=== PATIENT | male | born 1940 | race Caucasian/White ===

== ENCOUNTER 2018-08-02 03:44 | Emergency (ER) | payer MEDICARE, MEDICAID ==
[~2018-08-02] VITALS: Ht 177.8 cm; Wt 150.0 kg
[2018-08-02] MEDS ORDERED: SODIUM CHLORIDE FLUSH 10ML SYR IVF ONE (04:00)
[2018-08-02] MEDS ORDERED: PLEASE ENTER ALLERGIES MC SCH (04:00)
[2018-08-02] MEDS ORDERED: ONDANSETRON 2MG/ML, 2ML IVPush ONE (04:00)
[2018-08-02] MEDS ORDERED: MORPHINE SULFATE 4 MG/ML, 1ML ONE ×2 (04:00→05:46)
[2018-08-02] MEDS ORDERED: ONDANSETRON 2MG/ML, 2ML ONE (04:00)
--- NOTE | 2018-08-02 04:00 | NUR ---
[place] FROM HOME WOKE AT 0315 WITH ACHE RLQ ABD, DENIES NAUSEA OR VOMITING, OR INJURY. MONITORS APPLIED, SIDERAILS UP X2, CALL LIGHT WITHIN REACH.
--- NOTE | 2018-08-02 04:19 | NUR ---
PROVIDED PT WITH URINE CUP, PT STATED HE IS UNABLE TO VOID AT THIS TIME
[2018-08-02] MEDS ORDERED: RIVA20TA PO (04:29)
[2018-08-02] MEDS ORDERED: TRAZ-137 PO (04:29)
[2018-08-02] MEDS: MORPHINE SULFATE 4 MG/ML, 1ML IVPush PRN ×2 (04:40→05:48)
--- NOTE | 2018-08-02 04:49 | NUR ---
CT PENDING LAB/CREATINE.
[2018-08-02 05:07] LABS: BASOPHILS # (AUTO) 0.05 x10^3/uL (0-0.1); BASOPHILS % (AUTO) 0 % (0-1); EOSINOPHILS # (AUTO) 0.16 x10^3/uL (0-0.4); EOSINOPHILS % (AUTO) 1 % (1-7); LYMPHOCYTES # (AUTO) 2.06 x10^3/uL (1-3.4); LYMPHOCYTES % (AUTO) 16 % (22-44); MD NO; MEAN CORPUSCULAR HEMOGLOBIN 31.4 pg (27.5-34.5); MEAN CORPUSCULAR HGB CONC 34.4 g/dL (33.2-36.2); MEAN CORPUSCULAR VOLUME 91.3 fL (81-97); MEAN PLATELET VOLUME 10.8 fL (7.4-10.4); MONOCYTES # (AUTO) 0.99 x10^3/uL (0.2-0.8); MONOCYTES % (AUTO) 8 % (2-9); NEUTROPHILS # (AUTO) 9.32 x10^3/uL (1.8-6.8); NEUTROPHILS % (AUTO) 74 % (42-75); PLATELET COUNT 165 x10^3/uL (130-400); RED BLOOD COUNT 4.48 x10^6/uL (4.38-5.82); RED CELL DISTRIBUTION WIDTH 13.7 % (9.4-14.8)
[2018-08-02 05:09] LABS: ALANINE AMINOTRANSFERASE 27 U/L (12-78); ALBUMIN 3.6 g/dL (3.4-5.0); ANION GAP 6 mmol/L (5-15); CALCIUM 8.9 mg/dL (8.5-10.1); CHLORIDE 108 mmol/L (98-107); CREATININE 0.99 mg/dL (0.7-1.3)
[2018-08-02 05:11] LABS: ALKALINE PHOSPHATASE 93 U/L (45-117); BILIRUBIN,TOTAL 0.5 mg/dL (0.2-1.0); TOTAL PROTEIN 7.9 g/dL (6.4-8.2)
--- NOTE | 2018-08-02 05:15 | NUR ---
CT PENDING LAB/CREATINE.
--- NOTE | 2018-08-02 05:21 | NUR ---
URINE SAMPLE TAKEN TO LAB
--- NOTE | 2018-08-02 05:26 | NUR ---
PT TO CT
[2018-08-02] MEDS ORDERED: OMNIPAQUE 350 MG/ML, 100ML BOTTLE ONE (05:45)
--- NOTE | 2018-08-02 05:45 | NUR ---
PT RESTING ON GURNEY, MONITORS IN PLACE, CALL LIGHT WITHIN REACH. AWAITING CT RESULT
[2018-08-02 06:02] LABS: MICROSCOPIC NOT IND
[2018-08-02 06:09] LABS: CULTURE INDICATED? NO
--- NOTE | 2018-08-02 07:03 | NUR ---
ENEMA ADMINISTERED, PT TOLERATED WELL.
--- NOTE | 2018-08-02 07:04 | NUR ---
REPORT GIVEN TO CAMERON ANTONIO
--- NOTE | 2018-08-02 07:07 | NUR ---
PT RESTING ON GURNEY. ENEMA PLACED. PT RESTING ON GURNEY W/ TOWELS AND CHUCKS ON GURNEY.
--- NOTE | 2018-08-02 07:15 | NUR ---
ATTEMPTED TO CALL [facility] AND [facility] AT [phone] AND [phone]. NO ANSWER AT EITHER NUMBER. MESSAGE LEFT.
--- NOTE | 2018-08-02 07:38 | NUR ---
NO BM FROM FIRST ENEMA. SECOND ENEMA COMPLETED.
--- NOTE | 2018-08-02 07:58 | NUR ---
SPOKE W/ ERP DR. LANG ABOUT PT NOT BEING ABLE TO PROVIDE SUFFICIENT BM W/ 2ND ENEMA. PT PROVIDED ONE 1/2 INCH ROUNDED PELLET SIZED BM. PER ERP CALL PT FACILITY AND DISCUSS OPTIONS OF ASSISTED FACILITY BEING ABLE TO PROVIDE ENEMAS AT FACILITY.
--- NOTE | 2018-08-02 08:15 | NUR ---
SPOKE W/ DALTON FROM [facility] AT [phone] WHO STATES THEY FILL HIS RX IF STAFF PROVIDE PT W/ HARD COPY. THEY DO NOT PERFORM ENEMAS/SUPPOSITORIES. ERP NOTIFIED.
--- NOTE | 2018-08-02 08:17 | NUR ---
PER ERP PT OKAY TO DC W/ HARD COPY RX.
[2018-08-02 08:18] VITALS: BP 130/64
--- NOTE | 2018-08-02 08:20 | NUR ---
SPOKE W/ DIAMOND FROM [facility] AT [phone]. PER DIAMOND THEY DO NOT SET UP TRANSPORT. PT TO BE TRANSPORTED VIA [employer] [facility].
--- NOTE | 2018-08-02 08:44 | NUR ---
PT PROVIDED W/ DC PAPERWORK. PIV DC'D. PT RESTING ON EDDA. YANETH. CALL LIGHT IN REACH. AWARE OF DC TIME AT 1030.
--- NOTE | 2018-08-02 09:28 | NUR ---
PT RESTING ON GURNEY. LEE
== END 2018-08-02 10:44 | disposition home or self-care (01) ==
LOC: ED 04:18
DX: R10.31 Right lower quadrant pain (principal)
CPT/HCPCS: 36415; 74177; 80053; 81003; 83690; 85025; 96374; 96375; 96376; 99284; J2405; Q9967

== ENCOUNTER 2018-10-12 15:28 | Inpatient (IN) | payer MEDICARE, MEDICAID ==
[~2018-10-12] VITALS: Ht 177.8 cm; Wt 141.9 kg
[~2018-10-12 15:28] MED LIST: RIVA20TA PO; TRAZ-137 PO
--- NOTE | 2018-10-12 15:45 | NUR ---
Dr. Leiva at bedside to evaluate pt.
--- NOTE | 2018-10-12 15:48 | NUR ---
EDT at bedside for EKG.
--- NOTE | 2018-10-12 16:21 | NUR ---
Labs drawn, XR complete.
[2018-10-12 16:23] LABS: MEAN CORPUSCULAR HEMOGLOBIN 30.1 pg (27.5-34.5); MEAN CORPUSCULAR HGB CONC 32.5 g/dL (33.2-36.2); MEAN CORPUSCULAR VOLUME 92.7 fL (81-97); MEAN PLATELET VOLUME 9.6 fL (7.4-10.4); PLATELET COUNT 130 x10^3/uL (130-400); RED BLOOD COUNT 4.12 x10^6/uL (4.38-5.82); RED CELL DISTRIBUTION WIDTH 14.4 % (9.4-14.8)
[2018-10-12 16:33] LABS: ALANINE AMINOTRANSFERASE 20 U/L (12-78); ALBUMIN 3.1 g/dL (3.4-5.0); ANION GAP 8 mmol/L (5-15); CALCIUM 8.6 mg/dL (8.5-10.1); CHLORIDE 109 mmol/L (98-107); CREATININE 0.79 mg/dL (0.7-1.3)
[2018-10-12 16:36] LABS: ALKALINE PHOSPHATASE 76 U/L (45-117); BILIRUBIN,TOTAL 0.6 mg/dL (0.2-1.0); TOTAL PROTEIN 6.9 g/dL (6.4-8.2); TROPONIN I < 0.015 ng/mL (0.000-0.045)
--- NOTE | 2018-10-12 16:55 | NUR ---
Pt sitting on end of [facility], asking where his jacket is, pt re-assured that his jacket was not present when he arrived to ED, and that this RN will contact [facility] to see if jacket was left in ambulance.
--- NOTE | 2018-10-12 17:10 | NUR ---
Pt sitting at end of bed, all monitoring equipment removed by pt. Pt states that he was attempting to find his jacket. Pt assisted back to bed and monitoring equipment replaced. Pt made aware that we are awaiting lab results and then the MD will be back in to speak with him.
--- NOTE | 2018-10-12 17:12 | NUR ---
HEIDI called regarding pt's jacket. Shruti, at [facility], will call back with information.
[2018-10-12 17:22] LABS: BASOPHILS # (AUTO) 0.02 x10^3/uL (0-0.1); BASOPHILS % (AUTO) 0 % (0-1); EOSINOPHILS # (AUTO) 0.24 x10^3/uL (0-0.4); EOSINOPHILS % (AUTO) 2 % (1-7); LYMPHOCYTES # (AUTO) 0.65 x10^3/uL (1-3.4); LYMPHOCYTES % (AUTO) 5 % (22-44); MONOCYTES # (AUTO) 0.82 x10^3/uL (0.2-0.8); MONOCYTES % (AUTO) 6 % (2-9); NEUTROPHILS # (AUTO) 11.56 x10^3/uL (1.8-6.8); NEUTROPHILS % (AUTO) 87 % (42-75)
[2018-10-12 17:23] LABS: MD SCAN
--- NOTE | 2018-10-12 17:28 | NUR ---
[employer] student at bedside, with this RN, for IV start. Pt made aware of plan for CTA. Pt also made aware that [facility] dispatch contacted the crew that transported him and he did not have a jacket on when they responded to him.
--- NOTE | 2018-10-12 18:32 | NUR ---
Pt back in room after CTA. Pt c/o being hungry, denies CP. Pt advised that after the results of the CTA are back, food can be addressed. Pt verbalizes understanding.
[2018-10-12] MEDS ORDERED: FUROSEMIDE 40 MG/4 ML IV ONE (21:00)
[2018-10-12] MEDS ORDERED: TRAZODONE 100MG TABLET PO SCH (21:00)
[2018-10-12] MEDS ORDERED: BISACODYL 10 MG SUPP PR PRN (21:00)
[2018-10-12] MEDS ORDERED: ACETAMINOPHEN 325 MG TABLET PO PRN (21:00)
[2018-10-12] MEDS ORDERED: POLYETHYLENE GLYCOL 17 GM PACKET PO PRN (21:00)
[2018-10-12] MEDS ORDERED: NITROGLYCERIN 0.4 MG BOTTLE (25 TABS) SL PRN (21:00)
[2018-10-12] MEDS ORDERED: morphine SULFATE 10 MG/ML, 1ML IVPush PRN (21:00)
[2018-10-12] MEDS ORDERED: HEPARIN 5,000 UNITS/ML, 1ML SQ SCH (21:00)
[2018-10-12] MEDS ORDERED: ONDANSETRON ODT 4 MG PO PRN (21:00)
[2018-10-12] MEDS ORDERED: RIVAROXABAN 20 MG TABLET PO SCH (21:00)
--- NOTE | 2018-10-12 21:22 | NUR ---
Attempt made to do full med rec, by calling [facility]. No answer at that facility.
[2018-10-12] MEDS ORDERED: risperidone PO (21:23)
[2018-10-12] MEDS ORDERED: tamsulosin PO (21:23)
--- NOTE | 2018-10-12 21:25 | NUR ---
Telephone SBAR report given to RNSelene. Pt made aware of new room assigment.
[2018-10-12 22:13] LABS: TROPONIN I < 0.015 ng/mL (0.000-0.045)
[2018-10-12 22:15] VITALS: BP 149/80
[2018-10-12] MEDS: SODIUM CHLORIDE FLUSH 10ML SYR IVF SCH (22:17)
[2018-10-12 22:43] LABS: MICROSCOPIC NOT IND
[2018-10-12 22:47] VITALS: BP 149/80
[2018-10-12 22:47] LABS: CULTURE INDICATED? NO
[2018-10-13 01:10] VITALS: BP 125/76
[2018-10-13] MEDS ORDERED: OMNIPAQUE 350 MG/ML, 100ML BOTTLE ONE (03:13)
[2018-10-13 04:50] LABS: BASOPHILS # (AUTO) 0.03 x10^3/uL (0-0.1); BASOPHILS % (AUTO) 0 % (0-1); EOSINOPHILS % (AUTO) 2 % (1-7); LYMPHOCYTES # (AUTO) 0.92 x10^3/uL (1-3.4); LYMPHOCYTES % (AUTO) 9 % (22-44); MD NO; MEAN CORPUSCULAR HEMOGLOBIN 30.9 pg (27.5-34.5); MEAN CORPUSCULAR HGB CONC 33.5 g/dL (33.2-36.2); MEAN CORPUSCULAR VOLUME 92.4 fL (81-97); MEAN PLATELET VOLUME 10.5 fL (7.4-10.4); MONOCYTES # (AUTO) 1.11 x10^3/uL (0.2-0.8); MONOCYTES % (AUTO) 10 % (2-9); NEUTROPHILS # (AUTO) 8.64 x10^3/uL (1.8-6.8); NEUTROPHILS % (AUTO) 79 % (42-75); PLATELET COUNT 136 x10^3/uL (130-400); RED BLOOD COUNT 4.29 x10^6/uL (4.38-5.82); RED CELL DISTRIBUTION WIDTH 14.3 % (9.4-14.8)
[2018-10-13 05:02] LABS: CHLORIDE 107 mmol/L (98-107)
[2018-10-13 05:12] LABS: ALANINE AMINOTRANSFERASE 15 U/L (12-78); ALBUMIN 3.1 g/dL (3.4-5.0); ALKALINE PHOSPHATASE 71 U/L (45-117); ANION GAP 10 mmol/L (5-15); BILIRUBIN,TOTAL 0.9 mg/dL (0.2-1.0); CALCIUM 8.7 mg/dL (8.5-10.1); CHOL/HDL RATIO 2.6; CHOLESTEROL, TOTAL 109 mg/dL (140-239); CREATININE 0.81 mg/dL (0.7-1.3); HDL CHOL % 39 % (26-37); HDL CHOLESTEROL (DIRECT) 42 mg/dL (40-60); LDL CHOLESTEROL,CALCULATED 53 mg/dL (54-169); LDL/HDL RATIO 1.3 (0.5-3.0); TOTAL PROTEIN 7.2 g/dL (6.4-8.2); TRIGLYCERIDES 71 mg/dL (50-200); TROPONIN I < 0.015 ng/mL (0.000-0.045); VLDL CHOLESTEROL 14 mg/dL (0-25)
[2018-10-13 05:18] VITALS: BP 117/78
[2018-10-13] MEDS ORDERED: CARVEDILOL 3.125 MG TABLET PO SCH (06:00)
[2018-10-13] MEDS ORDERED: FUROSEMIDE 20 MG/2 ML IV SCH (07:30)
[2018-10-13] MEDS ORDERED: POTASSIUM CHLORIDE 20 MEQ TAB.ER.PRT PO SCH (08:00)
[2018-10-13] MEDS ORDERED: REGADENOSON 0.4 MG/5 ML SYRINGE ONE (08:09)
[2018-10-13 08:44] VITALS: BP 120/74
[2018-10-13] MEDS ORDERED: KETOROLAC 30 MG/1 ML ONE (08:44)
[2018-10-13] MEDS: SODIUM CHLORIDE FLUSH 10ML SYR IVF SCH (08:54)
[2018-10-13] MEDS ORDERED: DOCUSATE 100 MG CAPSULE PO SCH (09:00)
[2018-10-13] MEDS ORDERED: LISINOPRIL 5 MG TABLET PO SCH (09:00)
[2018-10-13] MEDS ORDERED: SENNA/DOCUSATE TABLET PO SCH (09:00)
[2018-10-13] MEDS ORDERED: KETOROLAC 30 MG/1 ML IVPush ONE (09:00)
[2018-10-13 14:19] VITALS: BP 125/79
[2018-10-13] MEDS ORDERED: CARV3.1212 PO (14:24)
[2018-10-13] MEDS ORDERED: FURO-93 PO (14:24)
== END 2018-10-13 16:21 | disposition home or self-care (01) | DRG 205 ==
LOC: ED 19:26 → EDIP 21:00 → 5SO 21:53
PROVIDERS: ADMIT Family Medicine; ATTEND Family Medicine
PROC: 0T9B70Z Drainage of Bladder with Drainage Device, Via Natural or Artificial Opening (ICD-10-PCS; principal; 2018-10-12)
DX: M94.0 Chondrocostal junction syndrome [Tietze] (principal); I50.33 Acute on chronic diastolic (congestive) heart failure; Z68.41 Body mass index [BMI] 40.0-44.9, adult; D68.69 Other thrombophilia; I11.0 Hypertensive heart disease with heart failure; I48.2 Chronic atrial fibrillation; G47.00 Insomnia, unspecified; D64.9 Anemia, unspecified; D72.829 Elevated white blood cell count, unspecified; E78.5 Hyperlipidemia, unspecified; Z66 Do not resuscitate; E66.9 Obesity, unspecified; I25.2 Old myocardial infarction; Z79.01 Long term (current) use of anticoagulants
CPT/HCPCS: 36415; 71045; 71275; 78452; 80053; 80061; 81003; 83880; 84484; 85025; 93005; 93017; 93306; 99285; G0378; J1644; J1885; J1940; J2785; Q9967; A9502; C9898; J2270

== ENCOUNTER 2018-10-19 12:37 | Emergency (ER) | payer MEDICARE, MEDICAID ==
[~2018-10-19] VITALS: Ht 180.3 cm; Wt 150.0 kg
[~2018-10-19 12:37] MED LIST changes: +CARV3.1212 PO; +FURO-93 PO; +risperidone PO; +tamsulosin PO
--- NOTE | 2018-10-19 12:53 | NUR ---
PATIENT [place] FROM [facility] FOR BLOOD IN STOOL AND LOWER ABD PAIN, LAST BM 3-4 DAYS. DENIES N/V/D. HX RECTAL FISSURE. + LIBRADO, LAB AT BEDSIDE, CALL LIGHT WITHIN REACH.
[2018-10-19 13:06] LABS: MEAN CORPUSCULAR HEMOGLOBIN 29.5 pg (27.5-34.5); MEAN CORPUSCULAR HGB CONC 31.8 g/dL (33.2-36.2); MEAN CORPUSCULAR VOLUME 92.8 fL (81-97); MEAN PLATELET VOLUME 9.5 fL (7.4-10.4); PLATELET COUNT 193 x10^3/uL (130-400); RED BLOOD COUNT 4.79 x10^6/uL (4.38-5.82); RED CELL DISTRIBUTION WIDTH 13.9 % (9.4-14.8)
[2018-10-19 13:14] LABS: ALBUMIN 3.5 g/dL (3.4-5.0); ANION GAP 7 mmol/L (5-15); CALCIUM 8.8 mg/dL (8.5-10.1); CHLORIDE 107 mmol/L (98-107); CREATININE 0.85 mg/dL (0.7-1.3); INTERNATIONAL NORMALIZED RATIO 1.15 (0.93-1.1)
--- NOTE | 2018-10-19 13:14 | NUR ---
PATIENT IN XRAY.
[2018-10-19] MEDS ORDERED: ATOR-2 PO (13:16)
[2018-10-19] MEDS ORDERED: ESCI10TA PO (13:17)
[2018-10-19] MEDS ORDERED: LISI2.5T PO (13:18)
[2018-10-19] MEDS ORDERED: MELA3TAB2 PO (13:19)
[2018-10-19] MEDS ORDERED: OMEP10CA4 PO (13:20)
[2018-10-19] MEDS ORDERED: MEMA10TA PO (13:20)
[2018-10-19] MEDS ORDERED: POLY17PO29 PO-COUM (13:21)
[2018-10-19] MEDS ORDERED: GLYC1SUP71 RC (13:22)
[2018-10-19] MEDS ORDERED: RISP1TAB3 PO (13:23)
[2018-10-19] MEDS ORDERED: TAMS-11 PO (13:23)
[2018-10-19 13:24] LABS: BASOPHILS # (AUTO) 0.05 x10^3/uL (0-0.1); BASOPHILS % (AUTO) 0 % (0-1); EOSINOPHILS # (AUTO) 0.37 x10^3/uL (0-0.4); EOSINOPHILS % (AUTO) 2 % (1-7); LYMPHOCYTES # (AUTO) 0.99 x10^3/uL (1-3.4); LYMPHOCYTES % (AUTO) 6 % (22-44); MD SCAN; MONOCYTES # (AUTO) 0.72 x10^3/uL (0.2-0.8); MONOCYTES % (AUTO) 4 % (2-9); NEUTROPHILS # (AUTO) 14.97 x10^3/uL (1.8-6.8); NEUTROPHILS % (AUTO) 88 % (42-75)
[2018-10-19] MEDS ORDERED: CARV3.122 PO (13:24)
[2018-10-19] MEDS ORDERED: MAGNESIUM CITRATE 300ML ORAL SOL ONE (13:59)
[2018-10-19] MEDS ORDERED: MAGNESIUM CITRATE 300ML ORAL SOL PO ONE (14:00)
[2018-10-19] MEDS ORDERED: SODIUM CHLORIDE FLUSH 10ML SYR IVF ONE (14:00)
--- NOTE | 2018-10-19 14:01 | NUR ---
NEW ORDERS, MAG [employer] ADMINISTERED PER ORDER, PATIENT SITTING IN RSPURGER DRINKING MEDICATION. VS UPDATED IN CHART, NADN. NO ADDITIONAL NEEDS AT THIS TIME.
--- NOTE | 2018-10-19 14:51 | NUR ---
PATIENT HAD LARGE LIGHT BROWN BM WITH BLOOD, PATIENT REPORTS HAVING ANAL FISSURE AND BLOOD IS NORMAL FOR PATIENT. PATIENT HAS SMALL WOUND TO BUTTOCKS REGISTER CLERK, [employer] APPLIED, INTERVIEWING CLERK NOTIFIED FOR WOUND CONSULT FOLLOW UP AT [facility], SW AT PATIENT BEDSIDE. THROUGHPUT NOTIFIED PATIENT IS DC'D AND MEDICALLY CLEARED BACK TO [facility], AWAITING TRANSPORT.
[2018-10-19 15:22] VITALS: BP 157/87
--- NOTE | 2018-10-19 15:22 | NUR ---
TASK RN NOTE: REPORT RECEIVED FROM PRIMARY RN MONICA. DC ORDERS RECEIVED FROM PROVIDER, THIS RN DISCUSSED ELEVATED WBC COUNT WITH ELDON MAURICE WHO IS AWARE AND STATES NO FURTHER WORKUP IS NECESSARY AT THIS TIME. PT DOES NOT HAVE PIV AT TIME OF DC. PT IS A&O, RESPS EVEN AND UNLABORED. NO BLEEDING NOTED AT TIME OF DC. PT GIVEN DC INSTRUCTIONS. PT ASSISTED INTO WC (THIS IS PT'S BASELINE MOBILITY) AND WHEELED TO DC DESK, PT GIVEN CAB VOUCHER FOR CAB RIDE TO [facility]IV[facility]. PER EVIN SILVERMAN, PT'S ASSISTED LIVING FACILITY IS AWARE OF PT'S PLAN TO RETURN HOME AND STAFF ARE AWAITING HIS ARRIVAL.
== END 2018-10-19 15:27 | disposition home or self-care (01) ==
LOC: ED 13:00
DX: K59.00 Constipation, unspecified (principal); D72.829 Elevated white blood cell count, unspecified; K60.1 Chronic anal fissure; K62.5 Hemorrhage of anus and rectum; L89.312 Pressure ulcer of right buttock, stage 2; I25.2 Old myocardial infarction; I10 Essential (primary) hypertension; F32.9 Major depressive disorder, single episode, unspecified; E78.00 Pure hypercholesterolemia, unspecified; I48.91 Unspecified atrial fibrillation; Z88.0 Allergy status to penicillin; Z88.2 Allergy status to sulfonamides
CPT/HCPCS: 36415; 74021; 80048; 82040; 85025; 85610; 85730; 99284

== ENCOUNTER 2018-11-27 11:46 | Inpatient (IN) | payer MEDICARE, MEDICAID ==
[~2018-11-27] VITALS: Ht 177.8 cm; Wt 148.1 kg
[~2018-11-27 11:46] MED LIST changes: +ATOR-2 PO; +CARV3.122 PO; +ESCI10TA PO; +GLYC1SUP71 RC; +LISI2.5T PO; +MELA3TAB2 PO; +MEMA10TA PO; +OMEP10CA4 PO; +POLY17PO29 PO-COUM; +RISP1TAB3 PO; +TAMS-11 PO
--- NOTE | 2018-11-27 11:50 | NUR ---
PT PRESENTING TO ER FROM [facility] VIA [facility] FOR DIZZINESS WITH STANDING THIS MORNING. IV IN PLACE ON ARRIVAL, 650ML NS GIVEN. PT A&0X4, NO C/O PAIN OR DISCOMFORT. CONNECTED TO ALL MONITORING, HYPOTENSIVE, OTHER VSS. EKG COMPLETE. MD TO BEDSIDE FOR ASSESSMENT. AWAITING ORDERS AT THIS TIME. CALL LIGHT WITHIN REACH
[2018-11-27] MEDS ORDERED: RISP1TAB3 PO (11:59)
[2018-11-27] MEDS ORDERED: ATOR10TA9 PO (11:59)
--- NOTE | 2018-11-27 11:59 | NUR ---
RAD COMPLETED. FLUIDS RUNNING PER JUL. PT UPDATE WITH NEED FOR URINE SAMPLE, URINAL PROVIDED
[2018-11-27] MEDS ORDERED: SODIUM CHLORIDE 0.9% 1,000ML IVBOLUS ONE (12:00)
[2018-11-27 12:17] LABS: MEAN CORPUSCULAR HEMOGLOBIN 30.8 pg (27.5-34.5); MEAN CORPUSCULAR HGB CONC 33.3 g/dL (33.2-36.2); MEAN CORPUSCULAR VOLUME 92.5 fL (81-97); MEAN PLATELET VOLUME 9.7 fL (7.4-10.4); PLATELET COUNT 156 x10^3/uL (130-400); RED BLOOD COUNT 4.44 x10^6/uL (4.38-5.82); RED CELL DISTRIBUTION WIDTH 14.2 % (9.4-14.8)
[2018-11-27 12:26] LABS: ALANINE AMINOTRANSFERASE 14 U/L (12-78); ALBUMIN 2.9 g/dL (3.4-5.0); ANION GAP 7 mmol/L (5-15); CALCIUM 8.3 mg/dL (8.5-10.1); CHLORIDE 107 mmol/L (98-107); CREATININE 1.09 mg/dL (0.7-1.3); INTERNATIONAL NORMALIZED RATIO 1.35 (0.93-1.1)
[2018-11-27 12:31] LABS: ALKALINE PHOSPHATASE 75 U/L (45-117); BILIRUBIN,TOTAL 0.9 mg/dL (0.2-1.0); TOTAL PROTEIN 6.7 g/dL (6.4-8.2); TROPONIN I < 0.015 ng/mL (0.000-0.045)
--- NOTE | 2018-11-27 12:35 | NUR ---
LAB AT BEDSIDE FOR BLOOD CULTURE X2 DRAW.
[2018-11-27 12:41] LABS: BASOPHILS # (AUTO) 0.01 x10^3/uL (0-0.1); BASOPHILS % (AUTO) 0 % (0-1); EOSINOPHILS # (AUTO) 0.14 x10^3/uL (0-0.4); EOSINOPHILS % (AUTO) 1 % (1-7); LYMPHOCYTES # (AUTO) 0.57 x10^3/uL (1-3.4); LYMPHOCYTES % (AUTO) 3 % (22-44); MD SCAN; MONOCYTES # (AUTO) 0.99 x10^3/uL (0.2-0.8); MONOCYTES % (AUTO) 6 % (2-9); NEUTROPHILS % (AUTO) 91 % (42-75)
--- NOTE | 2018-11-27 12:56 | NUR ---
MD AT BEDSIDE FOR EXAM. PT TURNED ONTO SIDE, 3 WOUNDS TO BUTTOCK AND SACRUM NOTED, ONE WITH ASSOCIATED REDNESS. PT STATES NO PAIN UPON PALPATION. MD ORDER FOR STRAIGHT CATH FOR UA RECEIVED AND IMPLEMENTED.
[2018-11-27] MEDS ORDERED: ONDANSETRON 2MG/ML, 2ML IVPush ONE (13:00)
[2018-11-27] MEDS ORDERED: VANCOMYCIN PER PHARMACY MC ONE (13:00)
--- NOTE | 2018-11-27 13:02 | NUR ---
STRAIGHT CATH PERFORMED BY KEN IVY RN USING STERILE TECHNIQUE. PROCEDURE EXPLAINED TO PT PRIOR.
[2018-11-27 13:03] LABS: FREE T4 (FREE THYROXINE) 0.92 ng/dL (0.76-1.46); THYROID STIMULATING HORMONE 1.38 mIU/L (0.358-3.740)
--- NOTE | 2018-11-27 13:09 | NUR ---
NOTIFIED OF PT'S NEED FOR FULL FLUID BOLUS. PER MD, SINCE PT HAS HX CHF, WILL NOT RECEIVED FULL WEIGHT BASED BOLUS.
[2018-11-27 13:15] LABS: MICROSCOPIC AUTO
[2018-11-27 13:16] LABS: CULTURE INDICATED? YES
[2018-11-27] MEDS ORDERED: CEFTRIAXONE PMX 1GM/50ML 50 ML ONE (13:25)
[2018-11-27] MEDS ORDERED: VANCOMYCIN 2,000 MG in SODIUM CHLORIDE 0.9% 500 ML IV ONE (13:30)
[2018-11-27] MEDS ORDERED: CEFTRIAXONE PMX 1GM/50ML 50 ML IV ONE (13:30)
[2018-11-27] MEDS ORDERED: LACTATED RINGERS 1,000 ML IVBOLUS ONE (13:30)
--- NOTE | 2018-11-27 13:32 | NUR ---
IV ABX STARTED, BLOOD CULTURES X 2 DRAWN PRIOR TO IV ABX ADMIN.
--- NOTE | 2018-11-27 13:55 | NUR ---
SECOND BOLUS INFUSING, SECOND IV ABX INFUSING.
--- NOTE | 2018-11-27 14:58 | NUR ---
HOSPITALIST MD AT BEDSIDE FOR EXAM.
[2018-11-27] MEDS ORDERED: VANCOMYCIN PER PHARMACY MC PRN (15:30)
[2018-11-27] MEDS ORDERED: ONDANSETRON 2MG/ML, 2ML IVPush PRN (15:30)
[2018-11-27] MEDS ORDERED: POLYETHYLENE GLYCOL 17 GM PACKET PO PRN (15:30)
[2018-11-27] MEDS ORDERED: ENOXAPARIN 40 MG/0.4 ML SQ SCH (15:30)
[2018-11-27] MEDS ORDERED: ACETAMINOPHEN 325 MG TABLET PO PRN (15:30)
[2018-11-27] MEDS ORDERED: hydrALAzine 20 MG/ML, 1ML IVPush PRN (15:30)
[2018-11-27 15:44] LABS: HCT (SEDRATE) 41.1 % (39.2-51.8)
--- NOTE | 2018-11-27 16:08 | NUR ---
REPORT GIVEN TO LAURI BARNES, PT READY FOR TRANSPORT
[2018-11-27 16:13] LABS: MEAN CORPUSCULAR HGB CONC 33.6 g/dL (33.2-36.2); MEAN CORPUSCULAR VOLUME 92.3 fL (81-97); MEAN PLATELET VOLUME 9.9 fL (7.4-10.4); PLATELET COUNT 134 x10^3/uL (130-400); RED BLOOD COUNT 4.19 x10^6/uL (4.38-5.82)
[2018-11-27 16:53] LABS: BASOPHILS # (AUTO) 0.01 x10^3/uL (0-0.1); BASOPHILS % (AUTO) 0 % (0-1); EOSINOPHILS # (AUTO) 0.27 x10^3/uL (0-0.4); EOSINOPHILS % (AUTO) 2 % (1-7); LYMPHOCYTES # (AUTO) 0.74 x10^3/uL (1-3.4); LYMPHOCYTES % (AUTO) 5 % (22-44); MD SCAN; MONOCYTES # (AUTO) 1.36 x10^3/uL (0.2-0.8); MONOCYTES % (AUTO) 9 % (2-9); NEUTROPHILS # (AUTO) 12.12 x10^3/uL (1.8-6.8); NEUTROPHILS % (AUTO) 84 % (42-75)
[2018-11-27 17:11] VITALS: BP 91/60
[2018-11-27] MEDS: SODIUM CHLORIDE 0.9% 1,000 ML IV SCH ×2 (17:29→22:14)
[2018-11-27] MEDS ORDERED: PHARMACOKINETIC MONITORING MC PRN (17:30)
[2018-11-27 19:05] VITALS: BP 95/56
[2018-11-27] MEDS ORDERED: MELATONIN 5 MG TABLET PO PRN (20:00)
[2018-11-27] MEDS: ATORVASTATIN 10 MG TABLET PO SCH (21:29)
[2018-11-27] MEDS: MEMANTINE 10MG TABLET PO SCH (21:29)
[2018-11-27] MEDS: TRAZODONE 100MG TABLET PO SCH (21:30)
[2018-11-28] VITALS (7 sets, daily range): BP systolic 92–108; BP diastolic 49–71
[2018-11-28] MEDS ORDERED: CEFTRIAXONE PMX 2GM/50ML 50 ML IV SCH (01:00)
[2018-11-28] MEDS: CEFTRIAXONE PMX 1GM/50ML 50 ML IV SCH ×2 (02:10→13:53)
[2018-11-28 06:21] LABS: ALBUMIN 2.7 g/dL (3.4-5.0); ANION GAP 7 mmol/L (5-15); CALCIUM 8.5 mg/dL (8.5-10.1); CHLORIDE 110 mmol/L (98-107)
[2018-11-28 06:24] LABS: ALANINE AMINOTRANSFERASE 14 U/L (12-78); ALKALINE PHOSPHATASE 65 U/L (45-117); BILIRUBIN,TOTAL 0.7 mg/dL (0.2-1.0); CREATININE 0.86 mg/dL (0.7-1.3); TOTAL PROTEIN 6.4 g/dL (6.4-8.2)
[2018-11-28] MEDS: OMEPRAZOLE 20 MG CAPSULE.DR PO SCH (06:31)
[2018-11-28] MEDS: TAMSULOSIN 0.4 MG CAP.ER.24H PO SCH (08:15)
[2018-11-28] MEDS: MEMANTINE 10MG TABLET PO SCH ×2 (08:15→20:52)
[2018-11-28] MEDS: VANCOMYCIN 2,000 MG in SODIUM CHLORIDE 0.9% 500 ML IV SCH (08:15)
[2018-11-28] MEDS: RISPERIDONE 1 MG TABLET PO SCH (08:15)
[2018-11-28] MEDS: RIVAROXABAN 20 MG TABLET PO SCH (08:15)
[2018-11-28] MEDS: ESCITALOPRAM 10MG TABLET PO SCH (08:15)
[2018-11-28] MEDS ORDERED: BISACODYL 10 MG SUPP PR PRN (12:00)
[2018-11-28] MEDS: SODIUM CHLORIDE 0.9% 1,000 ML IV SCH (12:13)
[2018-11-28 18:21] LABS: TROPONIN I < 0.015 ng/mL (0.000-0.045)
[2018-11-28] MEDS: TRAZODONE 100MG TABLET PO SCH (20:52)
[2018-11-28] MEDS: ATORVASTATIN 10 MG TABLET PO SCH (20:52)
[2018-11-29] MEDS: CEFTRIAXONE PMX 1GM/50ML 50 ML IV SCH ×2 (02:25→14:30)
[2018-11-29 02:55] VITALS: BP 95/64
[2018-11-29] MEDS: VANCOMYCIN 2,000 MG in SODIUM CHLORIDE 0.9% 500 ML IV SCH (03:01)
[2018-11-29 05:04] LABS: BASOPHILS # (AUTO) 0.03 x10^3/uL (0-0.1); BASOPHILS % (AUTO) 0 % (0-1); EOSINOPHILS # (AUTO) 0.71 x10^3/uL (0-0.4); EOSINOPHILS % (AUTO) 9 % (1-7); LYMPHOCYTES # (AUTO) 1.17 x10^3/uL (1-3.4); LYMPHOCYTES % (AUTO) 16 % (22-44); MD NO; MEAN CORPUSCULAR HEMOGLOBIN 30.3 pg (27.5-34.5); MEAN CORPUSCULAR HGB CONC 33.2 g/dL (33.2-36.2); MEAN CORPUSCULAR VOLUME 91.4 fL (81-97); MEAN PLATELET VOLUME 9.8 fL (7.4-10.4); MONOCYTES # (AUTO) 0.88 x10^3/uL (0.2-0.8); MONOCYTES % (AUTO) 12 % (2-9); NEUTROPHILS # (AUTO) 4.73 x10^3/uL (1.8-6.8); NEUTROPHILS % (AUTO) 63 % (42-75); PLATELET COUNT 123 x10^3/uL (130-400); RED BLOOD COUNT 4.07 x10^6/uL (4.38-5.82)
[2018-11-29 05:15] LABS: ALANINE AMINOTRANSFERASE 18 U/L (12-78); ALBUMIN 2.5 g/dL (3.4-5.0); ANION GAP 6 mmol/L (5-15); CALCIUM 8.6 mg/dL (8.5-10.1); CHLORIDE 111 mmol/L (98-107); CREATININE 0.72 mg/dL (0.7-1.3)
[2018-11-29 05:17] LABS: ALKALINE PHOSPHATASE 55 U/L (45-117); BILIRUBIN,TOTAL 0.4 mg/dL (0.2-1.0); TOTAL PROTEIN 6.4 g/dL (6.4-8.2)
[2018-11-29] MEDS: OMEPRAZOLE 20 MG CAPSULE.DR PO SCH ×2 (06:31→21:02)
[2018-11-29 07:40] VITALS: BP 123/75
[2018-11-29] MEDS: MEMANTINE 10MG TABLET PO SCH ×2 (08:41→21:02)
[2018-11-29] MEDS: RISPERIDONE 1 MG TABLET PO SCH (08:41)
[2018-11-29] MEDS: RIVAROXABAN 20 MG TABLET PO SCH (08:41)
[2018-11-29] MEDS: TAMSULOSIN 0.4 MG CAP.ER.24H PO SCH (08:41)
[2018-11-29] MEDS: ESCITALOPRAM 10MG TABLET PO SCH (08:41)
[2018-11-29] MEDS ORDERED: MAALOX/HYOSCYAMINE/LIDOCAINE 45 ML BTL PO PRN (11:30)
[2018-11-29 13:28] VITALS: BP 126/77
[2018-11-29 19:12] VITALS: BP 113/73
[2018-11-29] MEDS ORDERED: VANCOMYCIN 2,000 MG in SODIUM CHLORIDE 0.9% 500 ML IV SCH (21:00)
[2018-11-29] MEDS: ATORVASTATIN 10 MG TABLET PO SCH (21:02)
[2018-11-29] MEDS: TRAZODONE 100MG TABLET PO SCH (21:03)
[2018-11-30 00:30] VITALS: BP 118/73
[2018-11-30] MEDS: CEFTRIAXONE PMX 1GM/50ML 50 ML IV SCH ×2 (01:52→14:06)
[2018-11-30 07:08] VITALS: BP 132/72
[2018-11-30] MEDS ORDERED: POLYETHYLENE GLYCOL 17 GM PACKET PO SCH (09:00)
[2018-11-30] MEDS: RIVAROXABAN 20 MG TABLET PO SCH (09:51)
[2018-11-30] MEDS: ESCITALOPRAM 10MG TABLET PO SCH (09:51)
[2018-11-30] MEDS: OMEPRAZOLE 20 MG CAPSULE.DR PO SCH (09:51)
[2018-11-30] MEDS: MEMANTINE 10MG TABLET PO SCH (09:51)
[2018-11-30] MEDS: RISPERIDONE 1 MG TABLET PO SCH (09:51)
[2018-11-30] MEDS: TAMSULOSIN 0.4 MG CAP.ER.24H PO SCH (09:51)
[2018-11-30 15:08] VITALS: BP 129/72
[2018-11-30] MEDS ORDERED: SUCR1ORA11 PO (15:40)
[2018-11-30] MEDS ORDERED: OMEP-110 PO (15:40)
== END 2018-11-30 16:17 | disposition home health service (06) | DRG 871 ==
LOC: ED 13:55 → EDIP 14:20 → 4NOR 16:25
PROVIDERS: ADMIT Hospitalist; ATTEND Hospitalist
DX: A41.9 Sepsis, unspecified organism (principal); E43 Unspecified severe protein-calorie malnutrition; D68.69 Other thrombophilia; L03.317 Cellulitis of buttock; N39.0 Urinary tract infection, site not specified; I50.30 Unspecified diastolic (congestive) heart failure; Z88.0 Allergy status to penicillin; Z88.2 Allergy status to sulfonamides; Z88.8 Allergy status to other drugs, medicaments and biological substances; E78.00 Pure hypercholesterolemia, unspecified; E78.5 Hyperlipidemia, unspecified; I11.0 Hypertensive heart disease with heart failure; I25.2 Old myocardial infarction; I48.2 Chronic atrial fibrillation; K21.9 Gastro-esophageal reflux disease without esophagitis; N40.0 Benign prostatic hyperplasia without lower urinary tract symptoms; F32.9 Major depressive disorder, single episode, unspecified
CPT/HCPCS: 36415; 71045; 80053; 80202; 81001; 82533; 83605; 83735; 84100; 84145; 84439; 84443; 84484; 85025; 85610; 85651; 85730; 86140; 87040; 87086; 93005; 96361; 96365; 96368; G0378; J0696; J3370; J7030; J7040; J7120

== ENCOUNTER 2018-12-15 19:49 | Emergency (ER) | payer MEDICARE, MEDICAID ==
[~2018-12-15] VITALS: Ht 188 cm; Wt 114.0 kg
[2018-12-15 21:25] VITALS: BP 104/52
== END 2018-12-15 23:03 | disposition home or self-care (01) ==
LOC: ED 20:22
DX: F41.1 Generalized anxiety disorder (principal); F32.9 Major depressive disorder, single episode, unspecified; I25.2 Old myocardial infarction; E78.00 Pure hypercholesterolemia, unspecified; I48.91 Unspecified atrial fibrillation; I10 Essential (primary) hypertension
CPT/HCPCS: 36415; 71045; 80048; 82040; 83880; 84484; 85025; 93005; 99284

== ENCOUNTER 2018-12-31 17:02 | Emergency (ER) | payer MEDICARE, MEDICAID ==
[~2018-12-31] VITALS: Ht 177.8 cm; Wt 147.0 kg
[2018-12-31 20:36] VITALS: BP 136/80
== END 2018-12-31 20:38 | disposition home or self-care (01) ==
LOC: ED 18:46
DX: R07.89 Other chest pain (principal); F43.9 Reaction to severe stress, unspecified
CPT/HCPCS: 36415; 71045; 80053; 83880; 84484; 85025; 93005; 99284

== ENCOUNTER 2019-04-25 19:13 | Emergency (ER) | payer MEDICARE, MEDICAID ==
[~2019-04-25] VITALS: Ht 177.8 cm; Wt 150.0 kg
[~2019-04-25 19:13] MED LIST changes: +ATOR10TA9 PO; -MELA3TAB2 PO; +MELA3TAB56 PO; +OMEP-110 PO; -OMEP10CA4 PO; +OMEP10CA5 PO; +SUCR1ORA11 PO
--- NOTE | 2019-04-25 19:22 | NUR ---
PT BIB EMS FROM [facility] FOR COMPLAINTS OF FEELING SAD. PT STATES "I FEEL SAD AND JUST DONT WANT TO LIVE ANYMORE" DENIES SI OR TRYING TO HARMSELF.. PT HAS DEMENTIA AND IS FORGETFUL TO PLACE AND TIME. PT CLOTHES ARE SOILED W URINE. PT STATES "THEY JUST GIVE ME MY MEDS AND LEAVE ME ALONE." PT VS STABLE.
[2019-04-25 20:13] LABS: BASOPHILS # (AUTO) 0.08 x10^3/uL (0-0.1); BASOPHILS % (AUTO) 1 % (0-1); EOSINOPHILS # (AUTO) 0.52 x10^3/uL (0-0.4); EOSINOPHILS % (AUTO) 5 % (1-7); LYMPHOCYTES % (AUTO) 21 % (22-44); MD NO; MEAN CORPUSCULAR HEMOGLOBIN 30.9 pg (27.5-34.5); MEAN CORPUSCULAR HGB CONC 33.5 g/dL (33.2-36.2); MEAN CORPUSCULAR VOLUME 92.4 fL (81-97); MONOCYTES # (AUTO) 1.16 x10^3/uL (0.2-0.8); MONOCYTES % (AUTO) 10 % (2-9); NEUTROPHILS # (AUTO) 7.03 x10^3/uL (1.8-6.8); NEUTROPHILS % (AUTO) 63 % (42-75); PLATELET COUNT 197 x10^3/uL (130-400); RED BLOOD COUNT 4.29 x10^6/uL (4.38-5.82)
[2019-04-25 20:21] LABS: ALANINE AMINOTRANSFERASE 20 U/L (12-78); ALBUMIN 3.2 g/dL (3.4-5.0); ANION GAP 6 mmol/L (5-15); CALCIUM 8.7 mg/dL (8.5-10.1); CHLORIDE 107 mmol/L (98-107); CREATININE 1.02 mg/dL (0.7-1.3)
[2019-04-25 20:23] LABS: ALKALINE PHOSPHATASE 98 U/L (45-117); BILIRUBIN,TOTAL 0.3 mg/dL (0.2-1.0); TOTAL PROTEIN 7.9 g/dL (6.4-8.2)
[2019-04-25 20:29] LABS: SALICYLATE LEVEL < 1.7 mg/dL (2.8-20.0)
--- NOTE | 2019-04-25 21:01 | NUR ---
REPORT TO KRISTINA
[2019-04-25 21:03] LABS: MICROSCOPIC AUTO
[2019-04-25 21:06] LABS: AMPHETAMINE SCREEN, URINE Negative (Negative); BARBITURATE SCREEN, URINE Negative (Negative); BENZODIAZEPINE SCREEN, URINE Negative (Negative); CANNABINOID SCREEN, URINE Negative (Negative); COCAINE SCREEN, URINE Negative (Negative); METHADONE SCREEN, URINE Negative (Negative); OPIATE SCREEN, URINE Negative (Negative)
[2019-04-25 21:13] LABS: CULTURE INDICATED? YES
[2019-04-25 21:23] VITALS: BP 102/55
--- NOTE | 2019-04-25 21:24 | NUR ---
PT RESTING ON GURNEY. LEE
--- NOTE | 2019-04-25 21:25 | NUR ---
ALL RESULTS ARE BACK AT THIS TIME. CHART UP FOR RECHECK.
== END 2019-04-25 22:00 | disposition home or self-care (01) ==
LOC: ED 21:45
DX: F32.9 Major depressive disorder, single episode, unspecified (principal); I48.91 Unspecified atrial fibrillation; I25.2 Old myocardial infarction; I10 Essential (primary) hypertension; E78.00 Pure hypercholesterolemia, unspecified
CPT/HCPCS: 36415; 80053; 80307; 81001; 85025; 87086; 99283; 99284

== ENCOUNTER → 2019-08-01 | Outpatient (CLI) | payer MEDICARE, MEDICAID ==
[~2019-08-01] MED LIST changes: +ACET-1600 PO; +BACI28.42 TP; +CEFT2PIG2 IV; +DOCU100C33 PO; +HYDR50TA99 PO; +LISI-170 PO; +LISI5TAB7 PO; +METR500T PO; +POLY17PO5 PO; -SUCR1ORA11 PO; +SUCR1ORA14 PO; +TRAM50TA2 PO; -TRAZ-137 PO; +TRAZ-175 PO
== END | disposition home or self-care (01) ==
LOC: CFH 12:13
PROVIDERS: ATTEND Family Medicine
DX: R19.00 Intra-abdominal and pelvic swelling, mass and lump, unspecified site (principal); M47.815 Spondylosis without myelopathy or radiculopathy, thoracolumbar region; Z90.49 Acquired absence of other specified parts of digestive tract
CPT/HCPCS: 74150